=== PATIENT | male | born 1955 | race Caucasian/White ===

== ENCOUNTER 2018-03-20 11:14 | Inpatient (IN) | payer MEDICARE ==
[~2018-03-20] VITALS: Ht 182.9 cm; Wt 149.7 kg
[2018-03-20] MEDS ORDERED: HYDROCO/APAP1 T13 PO (15:47)
[2018-04-06] VITALS (7 sets, daily range): BP systolic 99–137; BP diastolic 59–85
[2018-04-06] MEDS ORDERED: [UNRECOGNIZED DRUG - OTHER] (06:13)
[2018-04-06] MEDS ORDERED: METFORMIN PO (06:13)
[2018-04-06] MEDS ORDERED: TAMSULOSIN HCL0.4 MG PO (06:13)
[2018-04-06] MEDS ORDERED: VICTOZA (06:13)
[2018-04-06] MEDS ORDERED: LIPITOR10 M1 PO (06:14)
[2018-04-06] MEDS ORDERED: ATORVASTATIN (06:15)
--- NOTE | 2018-04-06 13:00 | NUR ---
FROM OR VIA BED ACCOMPANIED BY SEUN ALMANZA. RESPS EVEN AND UNLABORED ON O2 VIA NC. DRESSING TO RIGHT SHOULDER CDI, RIGHT ARM IN SLING. SCD'S TO BILAT LOWER EXTREMITIES. DENIES PAIN OR DISCOMFORT. ICE CHIPS OFFERED. ORIENTED TO ROOM AND CALL SYSTEM. SAFETY PRECAUTIONS REINFORCED. BED IN LOWEST POSITION WITH WHEELS LOCKED. CALL LIGHT WITHIN REACH. WILL CONTINUE TO MONITOR.
--- NOTE | 2018-04-06 15:50 | NUR ---
ASSISTED TO BATHROOM WITH STAND BY ASSIST. AMBULATED WITH STEADY GAIT. AT BEDSIDE. SLING IN PLACE TO RIGHT ARM, DRESSING TO RIGHT SHOULDER CDI. MEDICATED WITH DEMEROL 50MG IVP FOR C/O 10/10 RIGHT SHOULDER PAIN. CALL LIGHT WITHIN REACH. WILL CONTINUE TO MONITOR.
--- NOTE | 2018-04-06 17:05 | NUR ---
DR GARCIA AT BEDSIDE. NO NEW ORDERS RECEIVED.
--- NOTE | 2018-04-06 17:55 | NUR ---
DR ESTRADA AT BEDSIDE, NEW ORDERS RECEIVED.
--- NOTE | 2018-04-06 19:33 | NUR ---
PT.IS UP AT BEDSIDE USING URINAL W/'S ASSISTANCE. PT.IS ASKING FOR PAIN MEDICATION, WHEN ASKED IF HE IS IN PAIN AND WHAT HIS PAIN LEVEL IS HIS RESPONSE WAS, "I'VE HAD 8 SURGERIES AND DONE THIS BEFORE, YOU ALWAYS HAVE TO BE A 10 TO GET ANYTHING." I DISCUSSED POC W/PT AND AND REASSURED PT.THAT I WOULD DO THE BEST I CAN TO KEEP HIM COMFORTABLE W/IN PARAMETERS AND ASKED IF THERE WERE OTHER THINGS WE CAN DO TO HELP KEEP HIM COMFORTABLE. DENIED. PT. AND REMINDED TO GET PT.'S CPAP FROM HOME. PT.LEFT SITTING ON SIDE OF BED, DIVING INSTRUCTOR IN TO OBTAIN V/S.
--- NOTE | 2018-04-06 22:30 | NUR ---
MEDICATED PT. ORDERS PROVIDE AND W/IV ANTIBIOTIC THERAPY. POC DISCUSSED W/PT AND @BEDSIDE. I OFFERED A COT TO THE PT'S , BUT SHE DECLINED STATING SHE WAS OKAY IN THE RECLINER. DRESSING TO PT'S R.SHOULDER IS CDI. NO OTHER S/S OF DISTRESS. PT.IS ASKING HOW SOON HE CAN HAVE HIS PAIN MEDICATION AGAIN. WHEN ASKED IF HE WAS HAVING PAIN HE STATED, "THE ARM IS NUMB, I CAN'T FEEL MY HAND STILL, BUT I ALWAYS HAVE PAIN SOMEWHERE AND WANT TO SLEEP AND KNOW I CAN GET IT." I AGAIN DISCUSSED POC AND MED SCHEDULE W/PT, HE VOICED UNDERSTANDING. PT.IS IN HIGH FOWLERS POSITION SHOWING ME PICTURES ON HIS PHONE, WATCHING TV AND TALKING W/HIS . WILL CONTINUE TO MONITOR.
[2018-04-07 04:25] VITALS: BP 135/73
--- NOTE | 2018-04-07 04:56 | NUR ---
PT.MEDICATED FOR PAIN REPORTED AT 08/26, PT.TALKATIVE AND UP USING URINAL, REPORTS NUMBNESS IN FINGERS STILL AT THIS TIME. PT.ASSISTED USING URINAL, IS ALSO AT BEDSIDE AND ASSISTING. DENIES ANY OTHER NEEDS, BUT HAS BEEN ENCOURAGED TO CALL IF NEEDS ARISE.
[2018-04-07 05:36] LABS: HEMOGLOBIN 17.5 g/dl (14.0-18.0); IMMATURE GRANULOCYTES 0.5 % (0.0-1.0); MEAN CELL VOLUME 94.1 fL CALC (80.0-100.0); MEAN CORPUSCULAR HGB 32.3 pG CALC (26.0-32.0); MEAN CORPUSCULAR HGB CONC 34.3 g/L CALC (32.0-36.0); NEUT# 9.03 thou/uL (1.82-7.42); RED BLOOD COUNT 5.42 mill/uL (4.70-6.10); RED CELL DISTRI WIDTH 12.8 % (11.5-15.5)
[2018-04-07 05:56] LABS: ANION GAP 17 (6-22 (CALC)); BUN 16 mg/dL (8-23); BUN/CREATININE RATIO 28 (12-20 (CALC)); CARBON DIOXIDE 24 mmol/l (22-30); CHLORIDE 98 mmol/l (95-108); CREATININE 0.6 mg/dL (0.7-1.3); GFR > 60 ML/MIN (>=60 (CALC)); GFR FOR AFR.AMER. > 60 ML/MIN (>=60 (CALC)); MAGNESIUM 1.4 mg/dL (1.6-2.3); POTASSIUM 4.3 mmol/l (3.5-5.1); SODIUM 135 mmol/l (137-146)
--- NOTE | 2018-04-07 07:02 | NUR ---
BEDSIDE REPORT RECEIVED BY CAMI ROMAN. IS ASSISTING PT TO BATHROOM . PT AND DENIES NEEDS AT THIS TIME.
[2018-04-07 07:59] VITALS: BP 142/89
--- NOTE | 2018-04-07 08:00 | NUR ---
PT IS SITTING RECLINER WITH RIGHT ARM ELEVATED. ASSESSMENT DONE. REPS EVEN AND UNLABORED. DRESSING IN RIGHT SHOULDER IS CDI. POC DISCUSSED WITH PT AND . SAFETY PRECAUTIONS REINFORCED AND CALL LIGHT IN REACH.
[2018-04-07 09:01] VITALS: BP 142/89
--- NOTE | 2018-04-07 11:44 | NUR ---
MEDICATED PT WITH DILAUDID FOR PAIN SEE EMAR PER ALBERT MCFADDEN. PT DENIES ANY OTHER NEEDS AT THIS TIME. CALL LIGHT IN REACH. IN ROOM.
[2018-04-07] MEDS ORDERED: METFORMIN1000 MG PO (12:07)
[2018-04-07] MEDS ORDERED: BISOPROL FUM10 MG PO (12:07)
[2018-04-07] MEDS ORDERED: ATORVASTATIN CA20 MG PO (12:08)
[2018-04-07] MEDS ORDERED: LISINOPRIL20 M1 PO (12:08)
[2018-04-07] MEDS ORDERED: DILAUDID4 MG PO (12:09)
--- NOTE | 2018-04-07 14:39 | NUR ---
Discharge instructions given. Patient verbalizes understanding of same. Discharged in stable condition via Wheelchair to Home with spouse. All belongings sent with pt.
== END 2018-04-07 14:39 | disposition home health service (06) | DRG 483 ==
LOC: MS2 03-23 07:30
PROVIDERS: Nurse Practitioner Family; ADMIT Orthopaedic Surgery; ATTEND Internal Medicine
PROC: 0RRJ00Z Replacement of Right Shoulder Joint with Reverse Ball and Socket Synthetic Substitute, Open Approach (ICD-10-PCS; principal; 2018-04-06)
PROC: 0LS30ZZ Reposition Right Upper Arm Tendon, Open Approach (ICD-10-PCS; 2018-04-06)
DX: M75.121 Complete rotator cuff tear or rupture of right shoulder, not specified as traumatic (principal); E11.42 Type 2 diabetes mellitus with diabetic polyneuropathy; I11.9 Hypertensive heart disease without heart failure; Z68.41 Body mass index [BMI] 40.0-44.9, adult; M19.011 Primary osteoarthritis, right shoulder; S46.211A Strain of muscle, fascia and tendon of other parts of biceps, right arm, initial encounter; S43.431A Superior glenoid labrum lesion of right shoulder, initial encounter; E11.65 Type 2 diabetes mellitus with hyperglycemia; E78.5 Hyperlipidemia, unspecified; G47.33 Obstructive sleep apnea (adult) (pediatric); N40.0 Benign prostatic hyperplasia without lower urinary tract symptoms; I25.10 Atherosclerotic heart disease of native coronary artery without angina pectoris; E83.42 Hypomagnesemia; X58.XXXA Exposure to other specified factors, initial encounter; Z86.718 Personal history of other venous thrombosis and embolism; Z91.11 Patient's noncompliance with dietary regimen; Z91.14 Patient's other noncompliance with medication regimen; Z79.84 Long term (current) use of oral hypoglycemic drugs; Z87.891 Personal history of nicotine dependence
CPT/HCPCS: J1100; J2710

== ENCOUNTER 2019-07-27 16:23 | Inpatient (IN) | payer MEDICARE ==
[~2019-07-27] VITALS: Ht 182.9 cm; Wt 158.4 kg
[~2019-07-27 16:23] MED LIST: ATORVASTATIN; ATORVASTATIN CA20 MG PO; BISOPROL FUM10 MG PO; DILAUDID4 MG PO; HYDROCO/APAP1 T13 PO; LIPITOR10 M1 PO; LISINOPRIL20 M1 PO; METFORMIN PO; METFORMIN1000 MG PO; TAMSULOSIN HCL0.4 MG PO; VICTOZA; [UNRECOGNIZED DRUG - OTHER]
[2019-07-27 16:50] VITALS: BP 140/82
[2019-07-27] MEDS ORDERED: FUROSEMIDE20 MG PO (18:09)
[2019-07-27] MEDS ORDERED: TADALAFIL20 M1 PO (18:10)
[2019-07-27] MEDS ORDERED: VITAMIN D5000 UNIT PO (18:11)
[2019-07-27 18:21] LABS: HEMATOCRIT 47.9 % (39.0-50.0); IMMATURE GRANULOCYTES 0.4 % (0.0-5.0); MEAN CELL VOLUME 96.8 fL CALC (80.0-100.0); MEAN CORPUSCULAR HGB 30.7 pG CALC (26.0-32.0); MEAN CORPUSCULAR HGB CONC 31.7 g/L CALC (32.0-36.0); NEUT# 5.91 thou/uL (1.82-7.42); RED BLOOD COUNT 4.95 mill/uL (4.70-6.10); RED CELL DISTRI WIDTH 13.6 % (11.5-15.5)
[2019-07-27 18:22] LABS: HEMOGLOBIN 15.2 g/dl (14.0-18.0)
[2019-07-27 18:28] LABS: ALBUMIN 4.2 g/dL (3.2-5.0); ALKALINE PHOSPHATASE 54 u/l (38-126); ANION GAP 13 (6-22 (CALC)); BILIRUBIN, TOTAL 0.4 mg/dL (0.0-1.4); BUN 17 mg/dL (8-23); BUN/CREATININE RATIO 22 (12-20 (CALC)); CHLORIDE 95 mmol/l (95-108); CREATININE 0.8 mg/dL (0.7-1.3); GFR > 60 ML/MIN (>=60 (CALC)); GFR FOR AFR.AMER. > 60 ML/MIN (>=60 (CALC)); POTASSIUM 4.2 mmol/l (3.5-5.1); SGOT/AST 26 u/l (19-48); SODIUM 140 mmol/l (137-146)
[2019-07-27 18:33] LABS: URINE BILIRUBIN - DIPSTICK NEGATIVE (NEGATIVE); URINE BLOOD DIPSTICK NEGATIVE (NEGATIVE); URINE COLOR YELLOW; URINE GLUCOSE - DIPSTICK NEGATIVE (NEGATIVE); URINE KETONE NEGATIVE (NEGATIVE); URINE LEUK ESTERASE NEGATIVE (Negative); URINE NITRITE - DIPSTICK NEGATIVE (Negative); URINE PROTEIN - DIPSTICK NEGATIVE (NEG-TRACE); URINE SPECIFIC GRAVITY >=1.030; URINE UROBILINOGEN - DIPSTICK 0.2 E.U./dL (0.2)
[2019-07-27 18:39] LABS: CARBON DIOXIDE 36 mmol/l (22-30)
[2019-07-27 19:00] LABS: URINE CLARITY CLEAR
[2019-07-27 19:15] VITALS: BP 146/65
[2019-07-28] VITALS (7 sets, daily range): BP systolic 114–157; BP diastolic 51–82
[2019-07-28 05:43] LABS: ALBUMIN 3.9 g/dL (3.2-5.0); ALKALINE PHOSPHATASE 56 u/l (38-126); ANION GAP 16 (6-22 (CALC)); BILIRUBIN, TOTAL 0.5 mg/dL (0.0-1.4); BUN 18 mg/dL (8-23); BUN/CREATININE RATIO 29 (12-20 (CALC)); CARBON DIOXIDE 32 mmol/l (22-30); CHLORIDE 94 mmol/l (95-108); CREATININE 0.6 mg/dL (0.7-1.3); GFR > 60 ML/MIN (>=60 (CALC)); GFR FOR AFR.AMER. > 60 ML/MIN (>=60 (CALC)); POTASSIUM 4.7 mmol/l (3.5-5.1); SGOT/AST 21 u/l (19-48); SODIUM 137 mmol/l (137-146); TOTAL PROTEIN 7.3 g/dL (6.3-8.2)
[2019-07-28] MEDS ORDERED: MENS 50+ PO (09:52)
[2019-07-28] MEDS ORDERED: MUCINEX DM MAXI1 TAB PO (09:55)
[2019-07-29 04:19] VITALS: BP 138/67
[2019-07-29 05:27] LABS: HEMATOCRIT 49.3 % (39.0-50.0); HEMOGLOBIN 16.2 g/dl (14.0-18.0); MEAN CELL VOLUME 94.4 fL CALC (80.0-100.0); MEAN CORPUSCULAR HGB CONC 32.9 g/L CALC (32.0-36.0); RED BLOOD COUNT 5.22 mill/uL (4.70-6.10); RED CELL DISTRI WIDTH 13.5 % (11.5-15.5)
[2019-07-29 05:42] LABS: ANION GAP 19 (6-22 (CALC)); BUN 23 mg/dL (8-23); BUN/CREATININE RATIO 33 (12-20 (CALC)); CARBON DIOXIDE 32 mmol/l (22-30); CHLORIDE 91 mmol/l (95-108); CREATININE 0.7 mg/dL (0.7-1.3); GFR > 60 ML/MIN (>=60 (CALC)); GFR FOR AFR.AMER. > 60 ML/MIN (>=60 (CALC)); POTASSIUM 4.8 mmol/l (3.5-5.1); SODIUM 137 mmol/l (137-146)
[2019-07-29 07:47] VITALS: BP 119/56
[2019-07-29 11:13] VITALS: BP 141/69
[2019-07-29 15:32] VITALS: BP 133/73
[2019-07-29 19:06] VITALS: BP 136/77
[2019-07-29 23:57] VITALS: BP 115/67
[2019-07-30 03:45] VITALS: BP 140/82
[2019-07-30 05:19] LABS: HEMATOCRIT 50.2 % (39.0-50.0); HEMOGLOBIN 16.4 g/dl (14.0-18.0); MEAN CELL VOLUME 94.2 fL CALC (80.0-100.0); MEAN CORPUSCULAR HGB 30.8 pG CALC (26.0-32.0); MEAN CORPUSCULAR HGB CONC 32.7 g/L CALC (32.0-36.0); RED BLOOD COUNT 5.33 mill/uL (4.70-6.10); RED CELL DISTRI WIDTH 13.4 % (11.5-15.5)
[2019-07-30 05:37] LABS: ANION GAP 18 (6-22 (CALC)); BUN 27 mg/dL (8-23); BUN/CREATININE RATIO 37 (12-20 (CALC)); CARBON DIOXIDE 33 mmol/l (22-30); CHLORIDE 89 mmol/l (95-108); CREATININE 0.7 mg/dL (0.7-1.3); GFR > 60 ML/MIN (>=60 (CALC)); GFR FOR AFR.AMER. > 60 ML/MIN (>=60 (CALC)); POTASSIUM 4.9 mmol/l (3.5-5.1); SODIUM 135 mmol/l (137-146)
[2019-07-30 07:37] VITALS: BP 125/57
[2019-07-30 10:45] VITALS: BP 129/69
[2019-07-30] MEDS ORDERED: LEVAQUIN750 MG PO (11:11)
[2019-07-30] MEDS ORDERED: LASIX40 MG PO (11:11)
[2019-07-30] MEDS ORDERED: PROVENTIL0.083 % IN (11:11)
[2019-07-30] MEDS ORDERED: PREDNISONE10 MG PO (11:11)
[2019-07-30 19:52] VITALS: BP 139/75
== END 2019-07-30 21:00 | disposition home or self-care (01) | DRG 291 ==
LOC: MS2 16:23
PROVIDERS: ADMIT Internal Medicine; ATTEND Internal Medicine
DX: I11.0 Hypertensive heart disease with heart failure (principal); I50.31 Acute diastolic (congestive) heart failure; J96.02 Acute respiratory failure with hypercapnia; J96.01 Acute respiratory failure with hypoxia; J44.1 Chronic obstructive pulmonary disease with (acute) exacerbation; G47.33 Obstructive sleep apnea (adult) (pediatric); E11.40 Type 2 diabetes mellitus with diabetic neuropathy, unspecified; E78.5 Hyperlipidemia, unspecified; I25.10 Atherosclerotic heart disease of native coronary artery without angina pectoris; N40.0 Benign prostatic hyperplasia without lower urinary tract symptoms; Z87.891 Personal history of nicotine dependence; Z91.041 Radiographic dye allergy status; Z79.4 Long term (current) use of insulin
CPT/HCPCS: A9540; A9567